=== PATIENT | female | born 1955 | race Caucasian/White ===

== ENCOUNTER 2019-05-09 22:21 | Emergency (ER) | payer OTHER ==
[~2019-05-09] VITALS: Ht 170.2 cm; Wt 61.6 kg
--- NOTE | 2019-05-09 22:45 | NUR ---
PT BIB [facility] FOR HEART PALPITATIONS AFTER [place]KE FROM [place]. HR ELEVATED. LAST METH USE LAST NIGHT. PT SEEN AT [facility] YESTERDAY AND [facility] 2 DAYS AGO. PT ON ABX FOR PNA. OTHER VSS. PT HAS NO OTHER COMPLAINTS. CALL LIGHT IN [place]
[2019-05-09 23:34] VITALS: BP 117/76
== END 2019-05-09 23:46 | disposition home or self-care (01) ==
LOC: ED 23:40
DX: R00.2 Palpitations (principal); Z72.9 Problem related to lifestyle, unspecified; F15.129 Other stimulant abuse with intoxication, unspecified
CPT/HCPCS: 93005; 99283